=== PATIENT | female | born 1950 | race African-American/Black ===

== ENCOUNTER 2016-09-06 | Emergency (ER) | payer MEDICAID, MEDICARE, OTHER ==
[~2016-09-06] VITALS: Ht 162.6 cm; Wt 97.2 kg
[~2016-09-06] MED LIST: ACET1TAB14 PO; ATENOLOL PO; ATOR10TA; CHOL200018 PO; DEXL30CA3 PO; DIAZ2TAB3 PO; OMEP20CA4 PO; TIZA4CAP6 PO; [UNRECOGNIZED DRUG - OTHER] PO
[2016-09-06] MEDS ORDERED: KETOROLAC 60MG/2ML VIAL IM ONE (00:45)
[2016-09-06] MEDS ORDERED: METHOCARBAMOL 500MG TABLET PO ONE (00:45)
[2016-09-06 01:52] VITALS: BP 133/72
== END 2016-09-06 02:41 | disposition home or self-care (01) ==
LOC: ER
DX: M54.12 Radiculopathy, cervical region (principal); M79.7 Fibromyalgia; Z88.4 Allergy status to anesthetic agent; Z90.49 Acquired absence of other specified parts of digestive tract
CPT/HCPCS: 72125; 93005; 96372; 99284; J1885

== ENCOUNTER 2016-09-25 01:22 | Emergency (ER) | payer MEDICARE ==
[~2016-09-25] VITALS: Ht 162.6 cm; Wt 64.5 kg
[~2016-09-25 01:22] MED LIST changes: -CHOL200018 PO; +CHOL200074 PO
[2016-09-25] MEDS ORDERED: SODIUM CHLORIDE 0.9% 500 ML IV ONE (04:09)
[2016-09-25 04:43] LABS: BASOPHILS % 1.4 % (0.0-2.0); HEMOGLOBIN. 11.9 g/dL (12.0-16.0); LYMPHOCYTES % 32.3 % (20.0-50.0); MEAN CORPUSCULAR VOLUME 87.9 fL (81.0-99.0); MEAN PLATELET VOLUME 7.8 fl (7.4-10.4); MONOCYTES % 10.3 % (2.0-8.0); PLATELET 347 x1000/uL (130-400); RED BLOOD CELL COUNT 3.98 mill/uL (4.2-5.4); RED CELL DISTRIBUTION WIDTH 13.7 % (11.6-14.6)
[2016-09-25 05:01] LABS: CARBON DIOXIDE 28 mEq/L (21-32); CHLORIDE 111 mEq/L (98-107); TROPONIN I < 0.02 ng/mL (0.00-0.04)
[2016-09-25 05:32] VITALS: BP 148/81
== END 2016-09-25 05:35 | disposition home or self-care (01) ==
LOC: ER 04:20
DX: R53.1 Weakness (principal); R42 Dizziness and giddiness; M54.2 Cervicalgia; R03.0 Elevated blood-pressure reading, without diagnosis of hypertension; M79.672 Pain in left foot; M79.671 Pain in right foot; Z88.8 Allergy status to other drugs, medicaments and biological substances; Z79.899 Other long term (current) drug therapy
CPT/HCPCS: 36415; 70450; 80048; 84484; 85025; 93005; 96360; 99285; J7040

== ENCOUNTER 2016-10-24 06:59 | Emergency (ER) | payer MEDICARE ==
[~2016-10-24] VITALS: Ht 165.1 cm; Wt 64.0 kg
[~2016-10-24 06:59] MED LIST changes: +CHOL200018 PO; -CHOL200074 PO
[2016-10-24] MEDS ORDERED: SODIUM CHLORIDE 0.9% 1,000 ML IV ONE (09:07)
[2016-10-24] MEDS ORDERED: KETOROLAC 30MG/ML VIAL IV STA (09:48)
[2016-10-24] MEDS ORDERED: METOCLOPRAMIDE HCL 10MG/2ML VIAL IV STA (09:48)
[2016-10-24 10:11] LABS: BASOPHILS % 0.7 % (0.0-2.0); EOSINOPHILS % 0.4 % (0.0-5.0); HEMATOCRIT. 38.2 % (36.0-48.0); LYMPHOCYTES % 22.8 % (20.0-50.0); MEAN CORPUSCULAR HEMOGLOBIN 29.7 pg (28.0-32.0); MEAN CORPUSCULAR VOLUME 87.4 fL (81.0-99.0); MEAN PLATELET VOLUME 7.7 fl (7.4-10.4); NEUTROPHILS % 69.1 % (40.0-76.0); PLATELET 370 x1000/uL (130-400); RED BLOOD CELL COUNT 4.37 mill/uL (4.2-5.4); RED CELL DISTRIBUTION WIDTH 13.7 % (11.6-14.6)
[2016-10-24 10:15] LABS: CLARITY URINE CLEAR (CLEAR); COLOR URINE YELLOW (YELLOW); GLUCOSE URINE NEGATIVE (NEGATIVE); KETONES URINE TRACE (NEGATIVE); LEUKOCYTE ESTERASE URINE 1+ (NEGATIVE); NITRITE URINE POSITIVE (NEGATIVE); OCCULT BLOOD URINE TRACE (NEGATIVE); PH URINE 5.5 (4.5-8.0); PROTEIN URINE NEGATIVE (NEGATIVE); SPECIFIC GRAVITY URINE 1.019 (1.005-1.030); UROBILINOGEN URINE 0.2 E.U./dL (0.2-1.0)
[2016-10-24 10:22] LABS: CHLORIDE 110 mEq/L (98-107)
[2016-10-24 10:26] LABS: CARBON DIOXIDE 25 mEq/L (21-32); ETHANOL BLOOD < 10 mg/dL
[2016-10-24] MEDS ORDERED: CEFTRIAXONE 1 G PREMIX 50 ML IV NR (10:45)
[2016-10-24 10:47] LABS: *AMPHETAMINES SCREEN URINE NEGATIVE (NEGATIVE); *BARBITURATES SCREEN URINE NEGATIVE (NEGATIVE); *BENZODIAZEPINES SCREEN URINE PRESUMTIVE POSITIVE (NEGATIVE); *COCAINE SCREEN URINE NEGATIVE (NEGATIVE); CANNABINOID URINE SCREEN NEGATIVE (NEGATIVE); METHADONE URINE SCREEN NEGATIVE (NEGATIVE); OPIATES URINE SCREEN NEGATIVE (NEGATIVE); PHENCYCLIDINE URINE SCREEN NEGATIVE (NEGATIVE)
[2016-10-24 11:11] VITALS: BP 132/82
== END 2016-10-24 11:47 | disposition home or self-care (01) ==
LOC: ER 07:16
DX: M79.7 Fibromyalgia (principal); G89.4 Chronic pain syndrome; N39.0 Urinary tract infection, site not specified; M19.90 Unspecified osteoarthritis, unspecified site; E78.00 Pure hypercholesterolemia, unspecified; I10 Essential (primary) hypertension; Z90.49 Acquired absence of other specified parts of digestive tract
CPT/HCPCS: 36415; 80053; 80305; 81001; 83690; 85025; 96361; 96365; 96375; 99285; G0482; J0696; J1885; J2765; J7030

== ENCOUNTER 2017-02-10 13:37 | Emergency (ER) | payer MEDICARE ==
[~2017-02-10] VITALS: Ht 165.1 cm; Wt 75.0 kg
[~2017-02-10 13:37] MED LIST changes: -CHOL200018 PO; +CHOL200074 PO
[2017-02-10] MEDS ORDERED: SODIUM CHLORIDE 0.9% 500 ML IV ONE (14:29)
[2017-02-10] MEDS ORDERED: MAGNESIUM/ALUMINUM HYDROXIDE/SIMETHICONE 30ML UDC PO STA (14:29)
[2017-02-10] MEDS ORDERED: FAMOTIDINE 20MG/2ML VIAL IV STA (14:29)
[2017-02-10] MEDS ORDERED: IPRATROPIUM/ALBUTEROL 0.5-3(2.5)MG/3ML NEB HHN ONE (14:30)
[2017-02-10 15:24] LABS: BASOPHILS % 0.8 % (0.0-2.0); HEMATOCRIT. 37.5 % (36.0-48.0); HEMOGLOBIN. 12.9 g/dL (12.0-16.0); LYMPHOCYTES % 32.3 % (20.0-50.0); MEAN CORPUSCULAR HEMOGLOBIN 30.6 pg (28.0-32.0); MEAN CORPUSCULAR VOLUME 88.7 fL (81.0-99.0); MEAN PLATELET VOLUME 7.6 fl (7.4-10.4); MONOCYTES % 9.6 % (2.0-8.0); NEUTROPHILS % 53.3 % (40.0-76.0); PLATELET 337 x1000/uL (130-400); RED BLOOD CELL COUNT 4.23 mill/uL (4.2-5.4); RED CELL DISTRIBUTION WIDTH 13.5 % (11.6-14.6)
[2017-02-10 15:29] LABS: CHLORIDE 106 mEq/L (98-107)
[2017-02-10 15:30] LABS: D-DIMER 0.7 mg/L FEU (<0.50); PARTIAL THROMBOPLASTIN TIME 24.5 sec (23.4-31.0); PROTHROMBIN TIME 10.7 sec (9.4-11.6)
[2017-02-10 15:35] LABS: CARBON DIOXIDE 27 mEq/L (21-32)
[2017-02-10 15:41] LABS: CREATINE KINASE 52 IU/L (26-192); TROPONIN I < 0.02 ng/mL (0.00-0.04)
[2017-02-10 16:26] VITALS: BP 148/63
== END 2017-02-10 16:30 | disposition home or self-care (01) ==
LOC: ER 13:50
DX: J40 Bronchitis, not specified as acute or chronic (principal); E86.0 Dehydration; I10 Essential (primary) hypertension; M19.90 Unspecified osteoarthritis, unspecified site; Z88.8 Allergy status to other drugs, medicaments and biological substances
CPT/HCPCS: 36415; 71010; 80053; 82550; 83605; 83690; 83880; 84443; 84484; 85025; 85379; 85610; 85730; 87040; 94640; 96361; 96374; 99285; J3490; J7040; J7620

== ENCOUNTER 2017-10-07 23:12 | Emergency (ER) | payer MEDICARE ==
[~2017-10-07] VITALS: Ht 162.6 cm; Wt 68.0 kg
[2017-10-08] MEDS ORDERED: KETOROLAC 60MG/2ML VIAL IM ONE (02:30)
[2017-10-08 04:32] LABS: CLARITY URINE CLEAR (CLEAR); COLOR URINE YELLOW (YELLOW); KETONES URINE NEGATIVE (NEGATIVE); LEUKOCYTE ESTERASE URINE 1+ (NEGATIVE); NITRITE URINE POSITIVE (NEGATIVE); OCCULT BLOOD URINE NEGATIVE (NEGATIVE); PROTEIN URINE NEGATIVE (NEGATIVE); SPECIFIC GRAVITY URINE 1.007 (1.005-1.030); UROBILINOGEN URINE 0.2 E.U./dL (0.2-1.0)
[2017-10-08 05:20] VITALS: BP 134/74
== END 2017-10-08 05:22 | disposition home or self-care (01) ==
LOC: ER 10-08 00:37
DX: N39.0 Urinary tract infection, site not specified (principal); I10 Essential (primary) hypertension; Z88.8 Allergy status to other drugs, medicaments and biological substances; Z87.891 Personal history of nicotine dependence
CPT/HCPCS: 81003; 96372; 99283; J1885

== ENCOUNTER 2020-02-03 12:11 | Emergency (ER) | payer MEDICARE ==
[~2020-02-03] VITALS: Ht 162.6 cm; Wt 73.0 kg
[2020-02-03] MEDS ORDERED: KETOROLAC 30MG/ML VIAL IM ONE (13:30)
[2020-02-03 13:32] VITALS: BP 151/91
== END 2020-02-03 14:23 | disposition home or self-care (01) ==
LOC: ER 14:19
DX: M79.7 Fibromyalgia (principal); M54.12 Radiculopathy, cervical region; I10 Essential (primary) hypertension
CPT/HCPCS: 93005; 96372; 99283; J1885

== ENCOUNTER 2020-07-11 04:46 | Emergency (ER) | payer MEDICARE ==
[~2020-07-11] VITALS: Ht 162.6 cm; Wt 73.0 kg
[2020-07-11 04:59] VITALS: BP 145/81
[2020-07-11] MEDS ORDERED: ACET-2708 MT (05:33)
[2020-07-11] MEDS ORDERED: ACETAMINOPHEN 325MG TABLET PO ONE (06:00)
== END 2020-07-11 06:15 | disposition home or self-care (01) ==
LOC: ER 04:46
DX: M79.641 Pain in right hand (principal); M19.90 Unspecified osteoarthritis, unspecified site; Z90.49 Acquired absence of other specified parts of digestive tract; Z88.8 Allergy status to other drugs, medicaments and biological substances
CPT/HCPCS: 73130; 99283

== ENCOUNTER 2024-04-06 12:46 | Emergency (ER) | payer MEDICARE, OTHER ==
[~2024-04-06] VITALS: Ht 162.6 cm; Wt 70.0 kg
[~2024-04-06 12:46] MED LIST changes: +ACET-2708 MT
[2024-04-06 13:30] VITALS: O2SAT 99
[2024-04-06] MEDS: KETOROLAC 30MG/ML VIAL IV STA (14:33)
[2024-04-06] MEDS: FAMOTIDINE 20MG/2ML VIAL IV STA (14:33)
[2024-04-06] MEDS: ACETAMINOPHEN 325MG TABLET PO STA (14:34)
[2024-04-06] MEDS: ONDANSETRON HCL 4MG/2ML INJ IV STA (14:34)
[2024-04-06] MEDS: MAGNESIUM/ALUMINUM HYDROXIDE/SIMETHICONE 30ML UDC PO STA (14:34)
[2024-04-06 14:47] LABS: BASOPHILS % 1.3 % (0.0-2.0); EOSINOPHILS % 0.6 % (0.0-5.0); HEMOGLOBIN. 12.7 g/dL (12.0-16.0); LYMPHOCYTES % 25.2 % (20.0-50.0); MEAN CORPUSCULAR HGB CONC 34.4 g/dL (31.0-37.0); MEAN PLATELET VOLUME 7.2 fl (7.4-10.4); MONOCYTES % 5.9 % (2.0-8.0); PLATELET 447 x1000/uL (130-400); RED BLOOD CELL COUNT 4.11 mill/uL (4.2-5.4); RED CELL DISTRIBUTION WIDTH 13.7 % (11.6-14.6); WHITE BLOOD COUNT 6.7 x1000/uL (4.5-11.0)
[2024-04-06 14:54] LABS: INR 0.9; PROTHROMBIN TIME 10.5 sec (9.6-11.0)
[2024-04-06 14:58] LABS: CARBON DIOXIDE 26 mEq/L (21-32); CHLORIDE 108 mEq/L (98-107); POTASSIUM 4.4 mEq/L (3.5-5.1); SODIUM 143 mEq/L (136-145)
[2024-04-06 14:59] LABS: CALCIUM 10.1 mg/dL (8.7-10.4)
[2024-04-06 15:03] LABS: CREATININE 0.9 mg/dL (0.6-1.0)
[2024-04-06 15:04] LABS: GLUCOSE 101 mg/dL (70-105); UREA NITROGEN BLOOD 11 mg/dL (9-23)
[2024-04-06 15:05] LABS: ALANINE AMINOTRANSFERASE 20 IU/L (10-49); ASPARTATE AMINOTRANSFERASE 18 IU/L (<34)
[2024-04-06 15:06] LABS: ALBUMIN 4.7 g/dL (3.2-4.8); BILIRUBIN DIRECT 0.1 mg/dL (<=3.0); BILIRUBIN TOTAL 0.5 mg/dL (0.1-1.0); PROTEIN TOTAL 7.3 g/dL (6.0-8.3)
[2024-04-06 15:10] LABS: TROPONIN I HIGH SENSITIVITY < 4 ng/L (3.0-34)
[2024-04-06] MEDS ORDERED: LOPE2TAB26 MT (16:55)
[2024-04-06 17:24] VITALS: BP 124/96; PULSE 72; RESP 18; TEMP 36.55848; O2SAT 99
[2024-04-07] MEDS ORDERED: IOHEXOL-300 100 ML BOTTLE ONE (00:13)
== END 2024-04-06 17:27 | disposition home or self-care (01) ==
LOC: ER 12:50
DX: K58.9 Irritable bowel syndrome, unspecified (principal); R19.7 Diarrhea, unspecified; Z79.899 Other long term (current) drug therapy
CPT/HCPCS: 99285; 74177; 96374; 96375; 80076; 80048; 83880; 83690; 85025; 85610; 84484; 36415; J1885; Q9967; J3490; J2405